=== PATIENT | male | born 1930 | race Caucasian/White ===

== ENCOUNTER 2016-12-16 23:59 | Inpatient (IN) | payer OTHER ==
[~2016-12-16] VITALS: Ht 182.9 cm; Wt 82.4 kg
[~2016-12-16 23:59] MED LIST: ADVAIR 500/501 DISK IH; DYAZIDE, MA1 CAPSULE PO; FLEXERIL10 MG PO; INCRUSE ELLI62.5 MCG IH; LIPITOR40 MG PO; MECLIZINE HCL25 M2 PO; PROAIR HFA8.5 GM IH; THEOPHYLLINE PO; XOPENEX HF200 INHALA IH
[2016-12-17 00:17] LABS: BASOPHIL COUNT 0.1 K/uL (0-0.1); EOSINOPHIL (%) 14.8 % (0-5); EOSINOPHIL COUNT 1.2 K/uL (0-0.3); HEMATOCRIT 45.3 % (38.0-50.0); IMMATURE GRANULOCYTE (%) 0.5 % (0.0-0.7); INSTRUMENT ABS NEUTROPHIL CT 3.5 K/uL; LYMPHOCYTE COUNT 2.3 K/uL (1.0-2.8); MCH 28.6 PG (29.0-34.0); MCHC 31.8 G/DL (30.0-36.0); MCV 89.9 FL (86-99); MEAN PLAT.VOLUME 9.7 uM^3 (9.0-12.4); MONOCYTE (%) 11.8 % (3-12); NEUTROPHIL (%) 43.4 % (45-76); NEUTROPHIL COUNT 3.5 K/uL (1.8-6.4); NRBC (%) 0.2 /100 WBC (0-0); PLATELET COUNT 345 K/uL (156-360); RBC DIS.WIDTH-CV 14.4 % (11.8-14.6); RBC DIS.WIDTH-SD 46.7 % (39-53); RED BLOOD COUNT 5.04 M/uL (4.00-5.50); WHITE BLOOD COUNT 8.2 K/uL (4.1-10.2)
[2016-12-17 00:28] LABS: BASE EXCESS 1.2 mEq/L (-3 to +3); BICARBONATE 27.2 mEq/L (22-26); CARBOXY HGB 0 % (0-5); COMMENTS - BLOOD GASES C+; DEVICE VENT; FI02 40 %; METHEMOGLOBIN 0.1 % (0-1.5); MODE NIV; PCO2 47 mm Hg (35-45); PO2 202 mm Hg (80-100); PRES. SUPPORT 10 CM/H2O; SITE RR; TOTAL RESP RATE 21 resp/min; pH 7.37 (7.35-7.45)
[2016-12-17 00:29] LABS: PEEP 5 CM/H20
[2016-12-17 00:31] LABS: CHLORIDE 103 mEq/L (99-109); POTASSIUM 3.9 mEq/L (3.7-5.4); SODIUM 143 mEq/L (136-147)
[2016-12-17 00:33] LABS: GLUCOSE 133 mg/dL (70-99)
[2016-12-17 00:34] LABS: ANION GAP 12 MEQ/L (2-14)
[2016-12-17 00:35] LABS: TOTAL BILIRUBIN 0.4 mg/dL (0.0-1.0)
[2016-12-17 00:36] LABS: ALKALINE PHOSPHATASE 94 IU/L (3-129)
[2016-12-17 00:37] LABS: GFR ESTIMATE (CALCULATED) 56 mL/min/
[2016-12-17 00:38] LABS: UREA NITROGEN (BUN) 25 mg/dL (9-23)
[2016-12-17 00:40] LABS: TROP-I INTERPRETATION NEGATIVE; TROPONIN-I 0.03 ng/mL (0.0-0.30)
[2016-12-17] MEDS ORDERED: SPIRIVA18 MCG IH (01:56)
[2016-12-17] MEDS ORDERED: METFORMIN HCL500 MG PO (01:59)
[2016-12-17] MEDS ORDERED: TYLENOL EXTRA500 MG PO (02:00)
[2016-12-17 07:05] VITALS: BP 134/67
[2016-12-17 11:50] VITALS: BP 110/65
[2016-12-17 15:10] VITALS: BP 112/74
[2016-12-17 19:40] VITALS: BP 105/68
[2016-12-17 22:42] VITALS: BP 104/57
[2016-12-18 03:15] VITALS: BP 101/60
[2016-12-18 07:30] VITALS: BP 104/56
[2016-12-18 07:35] LABS: ANION GAP 11 MEQ/L (2-14); CHLORIDE 105 MEQ/L (99-109); GFR ESTIMATE (CALCULATED) > 59 mL/min/; GLUCOSE 148 mg/dL (70-99); POTASSIUM 4.2 MEQ/L (3.7-5.4); SAMPLE HEMOLYSIS CHECK 1; SAMPLE ICTERIC CHECK 0; SAMPLE LIPEMIA CHECK 0; SODIUM 142 MEQ/L (136-147); UREA NITROGEN (BUN) 32 mg/dL (9-23)
[2016-12-18 09:06] LABS: Estimated Average Glucose 131 mg/dL (70-123); HEMOGLOBIN A1c (GLYCOHEMOGLOB) 6.2 % HGB (Below 5.7)
[2016-12-18 09:24] LABS: THEOPHYLLINE < 2.5 MCG/ML (10-20)
[2016-12-18 11:11] VITALS: BP 111/65
[2016-12-18 15:41] VITALS: BP 116/60
[2016-12-18 19:25] VITALS: BP 112/60
[2016-12-18 23:10] VITALS: BP 112/62
[2016-12-19 03:27] VITALS: BP 113/54
[2016-12-19 08:25] VITALS: BP 114/67
[2016-12-19 17:15] VITALS: BP 137/79
[2016-12-20 00:59] VITALS: BP 123/68
[2016-12-20 07:39] VITALS: BP 134/66
[2016-12-20] MEDS ORDERED: PREDNISONE10 MG PO (09:43)
== END 2016-12-20 10:29 | disposition home or self-care (01) | DRG 190 ==
LOC: EME → EDBD 23:59 → EME 23:59 → 2EASTP 12-17 02:20 → EDOF 12-17 02:20 → ENRESERV 12-17 02:36 → 2EASTP 12-17 07:04
PROVIDERS: Emergency Medicine; Family Medicine
DX: J44.1 Chronic obstructive pulmonary disease with (acute) exacerbation (principal); J96.01 Acute respiratory failure with hypoxia; E11.8 Type 2 diabetes mellitus with unspecified complications; E78.5 Hyperlipidemia, unspecified; I10 Essential (primary) hypertension; I25.2 Old myocardial infarction; K21.9 Gastro-esophageal reflux disease without esophagitis; Z66 Do not resuscitate; Z87.891 Personal history of nicotine dependence; M13.0 Polyarthritis, unspecified; M19.90 Unspecified osteoarthritis, unspecified site
CPT/HCPCS: 36600; 71010; 80048; 80053; 80198; 82803; 83036; 83605; 83880; 84484; 85025; 87040; 93005; 94002; 94640; 94640 76; 94799; 99202; 99281; 99285; J0171; J1100; J2930; J7030; J7644